=== PATIENT | female | born 2000 | race African-American/Black ===

== ENCOUNTER 2019-03-12 03:35 | Emergency (ER) | payer MEDICAID ==
[~2019-03-12] VITALS: Ht 172.7 cm; Wt 86.0 kg
[2019-03-12 07:41] VITALS: BP 112/63
== END 2019-03-12 07:47 | disposition home or self-care (01) ==
LOC: ER 03:35
DX: S93.402A Sprain of unspecified ligament of left ankle, initial encounter (principal); J45.909 Unspecified asthma, uncomplicated; W19.XXXA Unspecified fall, initial encounter; Y93.89 Activity, other specified; Y92.89 Other specified places as the place of occurrence of the external cause; Y99.8 Other external cause status
CPT/HCPCS: 73610; 81025; 99283